=== PATIENT | female | born 2000 ===

== ENCOUNTER 2023-12-14 21:33 | Outpatient (REF) | payer MEDICAID, SELFPAY ==
[2023-12-14 22:17] LABS: Vitamin D 25 Total 20.3 ng/mL (30-100)
== END 2023-12-14 21:34 | disposition home or self-care (01) ==
LOC: NCHCN 21:33
PROVIDERS: Visit Provider Family Medicine
DX: E55.9 Vitamin D deficiency, unspecified (principal)
CPT/HCPCS: 82306

== ENCOUNTER 2024-03-29 15:45 | Outpatient (REF) | payer MEDICAID, SELFPAY ==
[2024-03-29 21:37] LABS: HCT 37.9 % (36.0-46.0); MCH 28.6 pg (27.0-33.0); MCHC 34.3 % (32.0-36.0); MCV 84 fL (80-95); MPV 9.8 fL (8.0-11.0); Platelet Count 224 10^3/uL (130-400); RBC 4.54 10^6/uL (3.93-5.22); RDW 13.8 % (11.7-14.6); RDW-SD 41.4 fL; WBC 4.83 10^3/uL (4.4-10.8)
[2024-03-29 22:02] LABS: ALT 32 U/L (14-59); AST 32 U/L (15-37); Albumin 4.6 g/dL (3.4-5.0); Alkaline Phosphatase 46 U/L (46-116); Anion Gap 14.8 mmol/L (3-11); BUN 6 mg/dL (7-18); Bilirubin, Total 1.27 mg/dL (0.2-1.0); CO2 21.2 mmol/L (21.0-32.0); CREATININE 0.6 mg/dL (0.55-1.02); Calcium 9.7 mg/dL (8.5-10.1); Chloride 106 mmol/L (98-107); Estimated GFR 130.88 (mL/min/1.73m2); Glucose 91 mg/dL (74-106); Potassium 3.5 mmol/L (3.5-5.1); Sodium 142 mmol/L (136-145); TSH (W/Ref FT4) 0.28 uIU/mL (0.36-3.74); Total Protein 8.4 g/dL (6.4-8.2)
[2024-03-29 22:33] LABS: FREE T4 1.34 ng/dL (0.76-1.46)
[2024-03-29 22:37] LABS: Hemoglobin A1C 4.9 % (<5.7)
== END 2024-03-29 15:46 | disposition home or self-care (01) ==
LOC: NCHCN 15:45
PROVIDERS: Visit Provider Family Medicine
DX: R42 Dizziness and giddiness (principal); R26.89 Other abnormalities of gait and mobility; R51.9 Headache, unspecified; N39.0 Urinary tract infection, site not specified
CPT/HCPCS: 80053; 85027; 83036; 84439; 84443; 87086

== ENCOUNTER 2024-05-10 15:17 | Outpatient (REF) | payer MEDICAID, SELFPAY ==
[2024-05-10 22:15] LABS: Abs Immature Grans 0.01 10^3/uL (0.0-0.06); Absolute Basophil Count 0.05 10^3/uL (0.0-0.2); Absolute Eosinophil Count 0.07 10^3/uL (0.0-0.7); Absolute Lymphocyte Count 2.71 10^3/uL (1.2-3.4); Absolute Monocyte Count 0.28 10^3/uL (0.1-0.8); Absolute Neutrophil Count 2.05 10^3/uL (1.2-6.7); Eosinophils % 1.4 %; HCT 37.6 % (36.0-46.0); HGB 12.7 g/dL (11.2-15.7); Immature Grans % 0.2 %; Lymphocytes % 52.4 %; MCH 28.5 pg (27.0-33.0); MCHC 33.8 % (32.0-36.0); MCV 85 fL (80-95); MPV 10.2 fL (8.0-11.0); Monocytes % 5.4 %; Neutrophils % 39.6 %; Platelet Count 248 10^3/uL (130-400); RBC 4.45 10^6/uL (3.93-5.22); RDW 14.6 % (11.7-14.6); RDW-SD 44.7 fL; WBC 5.17 10^3/uL (4.4-10.8)
[2024-05-10 22:34] LABS: ALT 27 U/L (14-59); AST 21 U/L (15-37); Albumin 4.5 g/dL (3.4-5.0); Alkaline Phosphatase 44 U/L (46-116); Anion Gap 8.2 mmol/L (3-11); BUN 6 mg/dL (7-18); Bilirubin, Total 1.59 mg/dL (0.2-1.0); CO2 27.8 mmol/L (21.0-32.0); CREATININE 0.6 mg/dL (0.55-1.02); Calcium 9.7 mg/dL (8.5-10.1); Chloride 106 mmol/L (98-107); Estimated GFR 130.88 (mL/min/1.73m2); FREE T4 1.09 ng/dL (0.76-1.46); Glucose 78 mg/dL (74-106); Potassium 3.6 mmol/L (3.5-5.1); Sodium 142 mmol/L (136-145); TSH 0.32 uIU/mL (0.36-3.74); Total Protein 8.3 g/dL (6.4-8.2)
[2024-05-11 19:28] LABS: Thyroglobulin Antibody <15 U/mL (<=60)
[2024-05-11 19:30] LABS: Thyroperoxidase Antibody <28 U/mL (<=60)
== END 2024-05-10 15:18 | disposition home or self-care (01) ==
LOC: NCHCN 15:17
PROVIDERS: Visit Provider Family Medicine
DX: R10.30 Lower abdominal pain, unspecified (principal); E05.90 Thyrotoxicosis, unspecified without thyrotoxic crisis or storm; R42 Dizziness and giddiness
CPT/HCPCS: 80053; 84439; 84443; 85025; 86376; 86800; 87086

== ENCOUNTER 2024-07-06 18:48 | Outpatient (REF) | payer MEDICAID, SELFPAY ==
[2024-07-08 12:03] LABS: Bacterial Vaginosis (BV) Positive (Negative); Candida glabrata Negative (Negative); Candida species group Negative (Negative); Trichomonas vaginalis Negative (Negative)
[2024-07-08 13:30] LABS: HIV-1/2 Ag & Ab Screen Negative (Negative)
[2024-07-09 10:35] LABS: Hepatitis C Ab w Rflx HCV PCR Negative (Negative)
[2024-07-09 13:16] LABS: Syphilis Serology (RPR) Negative (Negative)
== END 2024-07-06 18:49 | disposition home or self-care (01) ==
LOC: NCHCN 18:48
PROVIDERS: Visit Provider Family Medicine
DX: T74.21XD Adult sexual abuse, confirmed, subsequent encounter (principal); Z11.3 Encounter for screening for infections with a predominantly sexual mode of transmission
CPT/HCPCS: 81513; 86803; 87389; 87481; 87661; 86592

== ENCOUNTER 2024-12-13 18:36 | Outpatient (CLI) | payer MEDICAID, SELFPAY ==
[2024-12-13 23:55] VITALS: BP 120/69; PULSE 86
[2024-12-14 00:18] VITALS: BP 120/69; PULSE 86
[2024-12-14 00:21] VITALS: RESP 16; TEMP 36.6
[2024-12-14 00:33] LABS: HCT 29.5 % (36.0-46.0); HGB 10.1 g/dL (11.2-15.7); MCH 31.1 pg (27.0-33.0); MCHC 34.2 % (32.0-36.0); MCV 91 fL (80-95); MPV 9.0 fL (8.0-11.0); Platelet Count 146 10^3/uL (130-400); RBC 3.25 10^6/uL (3.93-5.22); RDW 12.7 % (11.7-14.6); RDW-SD 41.4 fL; WBC 6.98 10^3/uL (4.4-10.8)
[2024-12-14 09:07] LABS: Lab Add On Test DONE
[2024-12-14 10:10] LABS: Ferritin 19 ng/mL (8-252); TSH (W/Ref FT4) 0.90 uIU/mL (0.36-3.74)
--- NOTE | 2024-12-14 10:11 | W.OBNST ---
Date of service: 12/14/24 Time of Service: 01:30 NST Evaluation Reason for NST Reasons for Nonstress Test: OTHER, SEE COMMENT Reason for NST Other: shon, fall Gestational Age Gestational Age in Weeks and Days: 25 Weeks and 4Days Test and Monitor Explained Test/Monitor Explained: Test Explained, Monitor Explained and Patient Verbalized Understanding Vital Signs Blood Pressure: 120/69 Pulse: 86 Urine Results Urine Protein: Negative Urine Ketones: Negative Urine Glucose: Negative Urine Blood: Negative NST Information Date on Monitor: 12/13/24 Time on Monitor: 23:52 Date off Monitor: 12/14/24 Time off Monitor: 01:28 Total Time on Monitor: 96 NST Interventions: PO Hydration Contraction Frequency: none noted NST Evaluation Patient States Movement: Present FHR Baseline: 130 Variability: Moderate 6-25 bpm Accelerations: 15x15 Decelerations: None NST Results: Reactive Note Ultrasound Done: N/A. NST Note Note: Pt called in to reports BH contractions all day that seemed to persist and were every 5 minutes, no bleeding, +FM Once pt arrived in unit approx 6 hours after calling in, she mentioned she had tripped and fallen onto her abdomen 8pm the previous evening (28 hrs ago) She states the baby was moving well and she had no bleeding so she opted not to call an OB Provider at the time, but now her contractions were concerning her. Urine dip is negative, pt well hydrated, no contractions per toco and none palpated, abdomen nontender to palpation, NST reactive and fetus active. Cvx exam performed: cvx closed/thick, no presenting parts in pelvis, intact membranes, white vaginal mucous Blood type is A+, CBC drawn and other than mild anemia with hgb 10.1 is WNL Pt discharged to home, advised to report bleeding/spotting, increase in discomfort or decrease in FM, will advise iron supplementation, keep next PN appt with OB provider NST Reviewed and Verified by: Deloirs Tarango
[2024-12-14 10:17] VITALS: BP 120/69; PULSE 86
== END 2024-12-14 01:30 ==
LOC: BCD 18:39 → OBS 23:40
PROVIDERS: Visit Provider Advanced Practice Midwife
DX: O47.02 False labor before 37 completed weeks of gestation, second trimester (principal); W19.XXXA Unspecified fall, initial encounter; Z3A.25 25 weeks gestation of pregnancy
CPT/HCPCS: 36415; 85027; 86850; 86900; 86901; 59025; 82728; 84443

== ENCOUNTER 2024-12-26 03:34 | Outpatient (CLI) | payer MEDICAID, SELFPAY ==
[2024-12-26 13:45] LABS: HCT 30.2 % (36.0-46.0); HGB 10.4 g/dL (11.2-15.7); MCH 30.9 pg (27.0-33.0); MCHC 34.4 % (32.0-36.0); MCV 90 fL (80-95); MPV 8.5 fL (8.0-11.0); Platelet Count 122 10^3/uL (130-400); RBC 3.37 10^6/uL (3.93-5.22); RDW 12.7 % (11.7-14.6); RDW-SD 41.7 fL; WBC 6.58 10^3/uL (4.4-10.8)
[2024-12-26 14:09] LABS: ALT 15 U/L (14-59); AST 13 U/L (15-37); Albumin 3.0 g/dL (3.4-5.0); Alkaline Phosphatase 52 U/L (46-116); Anion Gap 6.3 mmol/L (3-11); BUN 8 mg/dL (7-18); Bilirubin, Total 0.9 mg/dL (0.2-1.0); CO2 25.7 mmol/L (21.0-32.0); Calcium 8.0 mg/dL (8.5-10.1); Chloride 104 mmol/L (98-107); Estimated GFR 135.91 (mL/min/1.73m2); Glucose 112 mg/dL (74-106); Potassium 3.4 mmol/L (3.5-5.1); Sodium 136 mmol/L (136-145); TSH (W/Ref FT4) 0.47 uIU/mL (0.36-3.74); Total Protein 6.4 g/dL (6.4-8.2)
[2024-12-26 14:16] LABS: Glucose,1 Hr (Glucola) 112 mg/dL (80-140)
== END 2024-12-26 03:35 | disposition home or self-care (01) ==
LOC: LBO 03:34
PROVIDERS: Visit Provider Advanced Practice Midwife
DX: R79.89 Other specified abnormal findings of blood chemistry (principal); Z34.92 Encounter for supervision of normal pregnancy, unspecified, second trimester
CPT/HCPCS: 36415; 80053; 82950; 85027; 86850; 86900; 86901; 84439; 84443

== ENCOUNTER 2024-12-26 14:26 | Outpatient (REF) | payer MEDICAID, SELFPAY ==
[2024-12-28 11:42] LABS: Chlamydia Result Negative (Negative); GC Result Negative (Negative)
== END 2024-12-26 14:27 | disposition home or self-care (01) ==
LOC: LBN 14:26
PROVIDERS: Visit Provider Advanced Practice Midwife
DX: Z34.92 Encounter for supervision of normal pregnancy, unspecified, second trimester (principal)
CPT/HCPCS: 87491; 87591; 87086; 87480; 87510; 87660

== ENCOUNTER → 2025-01-22 00:49 | Outpatient (CLI) | payer MEDICAID, SELFPAY ==
--- NOTE | 2025-01-22 06:30 | DI.US_ITS ---
Exam(s) US OB GEOVANY WEIGHT EXAM: US OB [facility] WEIGHT CLINICAL HISTORY: bleeding in 3rd trimester,z34.90. TECHNIQUE: Transabdominal obstetrical ultrasound performed. COMPARISON: No exams were available for comparison FINDINGS: Number of fetuses: 1 position: CEPHALIC Placental location: There is a grade 1 posterior placenta. No evidence of previa. BIOMETRIC DATA: BPD: 8.01cm, 32weeks 1day HC: 29.1cm, 32weeks AC: 27.99cm, 32weeks FL: 6.19cm, 32weeks 1day EFW: 1,895.74g, 4lb 3.21oz, 45.5% Composite Age: 32weeks 1day INGE: 03/18[birth year]25 Heart Rate: 140bpm Amniotic fluid index: 17.76cm. The largest pocket measures 5.1 cm. IMPRESSION: 1. Single live intrauterine gestation as above. 2. Estimated weight is 1896gms. This is the 46th percentile. 3. Amniotic fluid index is 18 cm. The largest pocket measures 5.1 cm DATA REPOSITORY:
== END ==
LOC: DI 00:49
PROVIDERS: Visit Provider Advanced Practice Midwife
DX: Z34.93 Encounter for supervision of normal pregnancy, unspecified, third trimester (principal); Z3A.32 32 weeks gestation of pregnancy
CPT/HCPCS: 76816

== ENCOUNTER 2025-01-22 01:21 | Outpatient (CLI) | payer MEDICAID, SELFPAY ==
[2025-01-22 11:11] LABS: HCT 29.1 % (36.0-46.0); HGB 9.7 g/dL (11.2-15.7); MCH 30.1 pg (27.0-33.0); MCHC 33.3 % (32.0-36.0); MCV 90 fL (80-95); MPV 9.1 fL (8.0-11.0); Platelet Count 119 10^3/uL (130-400); RBC 3.22 10^6/uL (3.93-5.22); RDW 12.8 % (11.7-14.6); RDW-SD 42.0 fL; WBC 5.55 10^3/uL (4.4-10.8)
== END 2025-01-22 01:22 | disposition home or self-care (01) ==
PROVIDERS: Visit Provider Advanced Practice Midwife
DX: O99.013 Anemia complicating pregnancy, third trimester (principal)
CPT/HCPCS: 36415; 85027

== ENCOUNTER 2025-01-30 08:23 | Outpatient (CLI) | payer MEDICAID, SELFPAY ==
[2025-01-30 15:55] VITALS: BP 129/64; PULSE 96; TEMP 36.7
[2025-01-30 16:00] VITALS: BP 129/64; PULSE 96
--- NOTE | 2025-01-30 16:35 | W.OBNST ---
Date of service: 01/30/25 Time of Service: 16:30 NST Evaluation Reason for NST Reasons for Nonstress Test: OTHER, SEE COMMENT Reason for NST Other: well being Gestational Age Gestational Age in Weeks and Days: 32 Weeks and 3Days Test and Monitor Explained Test/Monitor Explained: Test Explained Vital Signs Blood Pressure: 129/64 Pulse: 96 Temperature: 98.1 F Urine Results Urine Protein: Negative Urine Ketones: Negative Urine Glucose: Negative Urine Blood: Negative NST Information Date on Monitor: 01/30/25 Time on Monitor: 15:50 Date off Monitor: 01/30/25 Time off Monitor: 16:57 Total Time on Monitor: 67 NST Interventions: None NST Evaluation Patient States Movement: Present Variability: Moderate 6-25 bpm Accelerations: 10x10 Decelerations: Variable NST Results: Reactive Note Ultrasound Done: N/A. NST Note NST Reviewed and Verified by: Deloris Tarango
[2025-01-30] MEDS: IRON SUCROSE COMPLEX 200 MG in Normal Saline 100 ML 400 MG IVPB (16:45)
[2025-02-01 10:38] VITALS: BP 129/64; PULSE 96; TEMP 36.7
== END 2025-01-30 17:00 | disposition home health service (06) ==
LOC: BCD 08:24 → OBS 15:46
PROVIDERS: Visit Provider Advanced Practice Midwife
DX: Z3A.32 32 weeks gestation of pregnancy (principal); O99.013 Anemia complicating pregnancy, third trimester
CPT/HCPCS: 96365; 59025; J1756

== ENCOUNTER 2025-02-05 03:17 | Outpatient (RCR) | payer MEDICAID, SELFPAY ==
[2025-02-05 13:32] LABS: HGB 10.5 g/dL (11.2-15.7)
[2025-02-05] MEDS: IRON SUCROSE COMPLEX 200 MG in Normal Saline 100 ML 400 MG IVPB (13:58)
[2025-02-05] MEDS: Normal Saline Flush 10 ML SYR IVP (13:59)
== END 2025-02-17 23:59 | disposition home or self-care (01) ==
LOC: INF 03:17
PROVIDERS: Visit Provider Advanced Practice Midwife
DX: O99.013 Anemia complicating pregnancy, third trimester (principal)
CPT/HCPCS: 36415; 96365; 85018; J1756